=== PATIENT | female | born 1935 | race Caucasian/White ===

== ENCOUNTER → 2016-12-01 | Outpatient (CLI) | payer MEDICARE, BC, OTHER ==
[~2016-12-01] MED LIST: AMBIEN5 MG PO; ARICEPT10 MG PO; ASPIRIN81 MG PO; BYSTOLIC5 MG PO; CLARITIN10 MG PO; COLACE100 MG PO; CYMBALTA60 MG PO; FLONASE16 GM NASBOTH; FLORINEF0.1 MG PO; IPRATROPIUM BRO30 ML NASBOTH; KLOR-CON M1010 MEQ PO; LANTUS SOL100 UNIT/1 SUBCUT; LEVAQUIN500 MG PO; MIRALAX17 GM PO; NITROSTAT0.4 MG SL; NOVOLOG FL100 UNIT/1 SUBCUT; PLAVIX75 MG PO; PREDNISONE20 MG PO; PRILOSEC40 MG PO; SALINE NOSE SPR45 ML NAS; SINEMET CR 50-21 TAB PO; TYLENOL500 MG PO; XANAX0.25 MG PO; ZOCOR40 MG PO; ZOLOFT100 M1 PO
== END | disposition short-term general hospital (02) ==
LOC: CLNEUR 13:01
DX: G20 Parkinson's disease (principal)